=== PATIENT | female | born 1950 | race Caucasian/White ===

== ENCOUNTER 2017-04-18 08:09 | Outpatient (CLI) | payer MEDICARE, OTHER ==
--- NOTE | 2017-04-18 10:57 | Diagnostic Imaging Report ---
CARLINE SALOMON [facility] [id number] [facility].[address] [id number] Report Submission Date: Apr 18, 2017 9:08:03 AM CDT Patient Study Name: KALEY FARMER Date: Apr 18, 2017 8:23:57 AM CDT Modality Type: US Gender: F Description: US ABD LIMITED : 52 Institution: [facility] Physician: CARLINE SALOMON Examination: Ultrasound gallbladder History: Epigastric discomfort Findings: Sonographic evaluation of the right upper quadrant demonstrates a gallbladder with numerous stones layering along the dependent margin. Gallbladder wall measures 2.1 mm. Common bile duct measures 3.9 mm. No intrahepatic biliary dilation. Liver demonstrates normal homogeneous echogenicity. No mass or cyst. Normal flow on color analysis. Normal Doppler waveforms. Right kidney measures 10.6 cm in length. No cortical mass or cyst. No hydronephrosis. Pancreatic region without gross irregularity. Impression: Gallstones. No evidence for gallbladder wall thickening/ inflammation or obstruction. Correlate with patient's symptoms. Electronically signed on Apr 18, 2017 9:08:03 AM CDT by: Curtis ALTAMIRANO
== END 2017-04-18 08:10 ==
LOC: RAD 08:09
PROVIDERS: ATTEND Nurse Practitioner Family
DX: R10.11 Right upper quadrant pain (principal)
CPT/HCPCS: 76705